=== PATIENT | male | born 1975 | race Caucasian/White ===

== ENCOUNTER 2021-03-11 12:15 | Emergency (ER) | payer OTHER ==
[2021-03-11 13:01] LABS: #Basophils 0.1 thou/uL (0.0-0.2); #Eosinphils 0.1 thou/uL (0.0-0.7); #Lymphocytes 1.5 thou/uL (1.20-3.40); #Monocytes 0.9 thou/uL (0.11-0.59); #Neutrophils 8.8 thou/uL (1.40-6.50); %Basophils 0.7 % (0.0-1.0); %Eosinophils 0.6 % (0.0-10.0); %Monocytes 7.6 % (0.0-10.0); %Neutrophils 78.1 % (42.0-75.0); Hemoglobin 16.6 g/dL (14.0-18.0); Mean Corpuscular HGB CONC 33.3 g/dL (32.0-36.0); Mean Corpuscular Hemoglobin 28.6 pg (27.0-31.0); Mean Corpuscular Volume 85.9 fL (78.0-98.0); Mean Platelet Volume 8.2 fL (7.4-10.4); Platelet Count 208 thou/uL (130-400); RBC Distribution Width 13.6 % (11.5-14.5); White Blood Cell (WBC) Count 11.3 thou/uL (4.8-10.8)
[2021-03-11 13:19] LABS: ALT (SGPT) 29 U/L (8-55); AST (SGOT) 29 U/L (5-34); Alkaline Phosphatase 33 U/L (40-110); Anion Gap 15 mmol/L (10-20); BUN (Urea Nitrogen) 25 mg/dL (8.9-20.6); Bilirubin, Total 0.4 mg/dL (0.2-1.2); Calc. Creatinine Clearance 0 mL/min (70-130); Calcium 9.2 mg/dL (7.8-10.44); Carbon Dioxide 26 mmol/L (22-29); Chloride 102 mmol/L (98-107); Globulin 2.5 g/dL (2.4-3.5); Glucose 103 mg/dL (70-105); Potassium 3.6 mmol/L (3.5-5.1); Protein, Total 6.5 g/dL (6.0-8.3); Sodium 139 mmol/L (136-145)
== END 2021-03-11 15:13 | disposition home or self-care (01) ==
LOC: ERS 12:15
DX: R00.2 Palpitations (principal); I25.10 Atherosclerotic heart disease of native coronary artery without angina pectoris; I11.0 Hypertensive heart disease with heart failure; I50.9 Heart failure, unspecified; E78.5 Hyperlipidemia, unspecified
CPT/HCPCS: 36415; 71045; 80053; 84484; 85025; 93005; 94760